=== PATIENT | female | born 1960 | race Caucasian/White ===

== ENCOUNTER → 2023-06-07 15:14 | Outpatient (REF) | payer OTHER, SELFPAY | LOC: WDC 15:14 | PROVIDERS: ATTENDING PHYSICIAN Nurse Practitioner Family; FAMILY PHYSICIAN Internal Medicine | DX: Z12.31 Encounter for screening mammogram for malignant neoplasm of breast (principal) | CPT/HCPCS: 77063; 77067 ==

== ENCOUNTER 2023-11-03 05:27 | Observation (INO) | payer OTHER, SELFPAY ==
[2023-11-03] VITALS (13 sets, daily range): BP systolic 114–154; BP diastolic 73–89; PULSE 66–94; BMI 35.3; BMI 36.2
--- NOTE | 2023-11-03 01:38 | ED.GENMED ---
History of Present Illness
<Mayra Robbins PA-C - Last Filed: 11/05/23 18:07>
General
Chief Complaint: Dizziness
Source: patient
Time Seen by Provider: 11/03/23 01:25
History of Present Illness
History of Present Illness:
63yoF with a history of hypertension, hyperlipidemia, and hypothyroidism presenting with her for evaluation of dizziness. Patient was sitting on her couch watching the [place] around 9 PM. She stood up from the couch and had an abrupt
onset of dizziness. She describes feeling like the room is spinning. Symptoms are worse with movement and if she opens her eyes. She also reports nausea and has had about 12 episodes of vomiting. Patient was unable to ambulate due to her
symptoms. She took a dose of meclizine but vomited shortly afterwards. She has a history of vertigo although her episodes are typically more mild in severity. She has participated in vestibular therapy in the past. She denies any head trauma. No
ear pain, tenderness, hearing loss, headache.
Past History
<Mayra Robbins PA-C - Last Filed: 11/05/23 18:07>
Past History
ED Past Medical History: HTN and Hypothyroidism
Social History
Tobacco: Non-smoker
Alcohol: Occasional
Drug: None
Phy Exam
<Mayra Robbins PA-C - Last Filed: 11/05/23 18:07>
Physical Exam
Physical Exam:
Sitting in dark room with her eyes closed
General Physical Exam
General age: appears stated age
General Skin: warm and dry
General Habitus: normal
General Mental: alert
Eye Exam
Eye Exam: PERRL and other (Horizontal nystagmus bilaterally)
Cardiovascular Exam
Cardiovascular Exam: regular rate/rhythm
Pulmonary Exam
Pulmonary Exam: no respiratory distress
Neurological Exam
Neurological Exam: other (Normal finger to nose and heel to bonilla bilaterally. Normal test of skew. )
Carol Coma Scale
Eye Opening: Spontaneous
Verbal Response: Oriented
Motor Response: Obeys Commands
GCS Total Score: 15
Skin Exam
Skin Exam: normal color and warm/dry
<Stephan Cruz DO - Last Filed: 11/03/23 04:56>
Carol Coma Scale
GCS Total Score: 15
Course
<Mayra Robbins PA-C - Last Filed: 11/05/23 18:07>
Orders/Labs/Results
Orders:
Orders
11/03/23 01:37
Electrocardiogram (*1) Urgent
Reason for Study: Vertigo / Dizzy
CT Head W/o Iv Contrast Urgent
Comment:
Reason For Exam: Dizziness
EKG- Treatment ONCE
0.9% Sodium Chloride 1000 ml [Nss] 1,000 ml IV BOLUS
Meclizine [Antivert] 25 mg PO NOW STA
Ondansetron Injectable [Zofran] 4 mg IV NOW STA
11/03/23 01:50
Complete Blood Count/With Diff Urgent
Comprehensive Metabolic Panel Urgent
TSH Reflex To Free T4 Routine
11/03/23 03:07
diazePAM [Valium Injection] 2 mg IV NOW STA
11/03/23 05:19
Ondansetron Injectable [Zofran] 4 mg IV NOW STA
11/03/23 05:20
Admit/Transfer Patient As Directed
Co-Sign Provider:
Level of Care: Observation services
Assign to:: Telemetry
Physician / Group: Herbie
Diagnosis: Vertigo
Reason for Telemetry: Arrhythmia
Date to Stop Telemetry: 11/06/23
Time to Stop Telemetry: 11:00
Code Status As Directed
Resuscitation Status: Full Code
PRN Pain Medication Management As Directed
May give lesser potent ordered pain med per pt: Yes
preference::
Protocol:: Medication orders for pain may be administered in a
manner that supports deferring to patient preference
when the pt is:
- Requesting an ordered lesser potent pain medication.
Least to most potent pain medications are defined
as: acetaminophen < NSAID < tramadol < opioids
(morphine, oxycodone, hydromorphone).
- Requesting a lesser dose of the same medication IF
ORDERED.
- Requesting a less intrusive route of administration
if both routes are prescribed by the provider (PO <
IV).
11/03/23 Breakfast
Regular
At Your Request: Full Participation
Flush (0.9% Sodium Chloride) [Flush (Nss)] See Dose Instructions IV PER PROTOCOL
11/03/23 08:23
0.9% Sodium Chloride 1000 ml [Nss] 1,000 ml IV 100 mls/hr
Acetaminophen [Tylenol] 650 mg PO Q4HPRN PRN
Diazepam [Valium] 5 mg PO TIDPRN PRN
Levothyroxine [Synthroid] 125 mcg PO DAILY @ 0600
Meclizine [Antivert] 25 mg PO Q8HPRN PRN
Ondansetron Injectable [Zofran] 4 mg IV Q6HPRN PRN
11/03/23 08:23
Activity As Directed
Activity Level: Ambulate
With Assistance
EKG with chest pain [ECG as needed] As Directed
ECG as needed for:: Chest Pain
I/O [Intake/ Output] As Directed
Frequency: Per unit guidelines
Neurological Checks As Directed
Frequency: q4h
Orthostatic Vital Signs As Directed
Orthostatic VS Frequency: BID
Pneumatic Compression Sleeves As Directed
Type: Knee high
Vital Signs As Directed
Frequency: Per unit guidelines
Oxygen Therapy [O2 Therapy] [RESP] Routine
Titrate/Wean O2 to maintain O2 sat greater than (%): 94
PT Consult [Pt Eval And Treat] Routine
Treatment: Vestibular Therapy
Activity Level: Ambulate
With Assistance
DX Deep Vein Thrombosis Video Routine
11/04/23 06:02
Basic Metabolic Panel IN AM
Complete Blood Count/No Diff IN AM
11/06/23 11:00
DC Protocol for Telemetry ONCE
Abnormal Lab Results
11/03/23
01:50
RBC 4.03 L 10^6/uL
(4.20-5.40)
MCH 33.7 H pg
(27.0-31.0)
MPV 10.6 H fL
(7.4-10.4)
Absolute Neuts (auto) 8.3 H 10^3/uL
(1.4-6.5)
Absolute Lymphs (auto) 0.9 L 10^3/uL
(1.2-3.4)
Neutrophils % 86.0 H %
(42.2-75.2)
Lymphocytes % 9.0 L %
(20.5-51.1)
Chloride 108 H mmol/L
(98-107)
BUN 25 H mg/dl
(7-17)
Glucose 149 H mg/dl
(70-99)
Alkaline Phosphatase 153 H U/L
(38-126)
TSH (Reflex) 0.46 L uIU/ml
(0.47-4.68)
11/03/23 01:50
11/03/23 01:50
Vital Signs
Initial and Last Documented VS:
Initial Vital Signs
Pulse Resp BP Pulse Ox
77 28 132/84 100
11/03/23 00:41 11/03/23 00:41 11/03/23 00:41 11/03/23 00:41
Last Documented Vital Signs
Temp Pulse Resp BP Pulse Ox
97.6 F 77 16 152/94 98
11/04/23 11:27 11/04/23 11:27 11/04/23 11:27 11/04/23 11:27 11/04/23 11:27
<Stephan Cruz, - Last Filed: 11/03/23 04:56>
Orders/Labs/Results
Orders:
Orders
11/03/23 01:37
Electrocardiogram (*1) Urgent
Reason for Study: Vertigo / Dizzy
CT Head W/o Iv Contrast Urgent
Comment:
Reason For Exam: Dizziness
EKG- Treatment ONCE
0.9% Sodium Chloride 1000 ml [Nss] 1,000 ml IV BOLUS
Meclizine [Antivert] 25 mg PO NOW STA
Ondansetron Injectable [Zofran] 4 mg IV NOW STA
11/03/23 01:50
Complete Blood Count/With Diff Urgent
Comprehensive Metabolic Panel Urgent
TSH Reflex To Free T4 Routine
11/03/23 03:07
diazePAM [Valium Injection] 2 mg IV NOW STA
11/03/23 05:19
Ondansetron Injectable [Zofran] 4 mg IV NOW STA
11/03/23 05:20
Admit/Transfer Patient As Directed
Co-Sign Provider:
Level of Care: Observation services
Assign to:: Telemetry
Physician / Group: Herbie
Diagnosis: Vertigo
Reason for Telemetry: Arrhythmia
Date to Stop Telemetry: 11/06/23
Time to Stop Telemetry: 11:00
Code Status As Directed
Resuscitation Status: Full Code
PRN Pain Medication Management As Directed
May give lesser potent ordered pain med per pt: Yes
preference::
Protocol:: Medication orders for pain may be administered in a
manner that supports deferring to patient preference
when the pt is:
- Requesting an ordered lesser potent pain medication.
Least to most potent pain medications are defined
as: acetaminophen < NSAID < tramadol < opioids
(morphine, oxycodone, hydromorphone).
- Requesting a lesser dose of the same medication IF
ORDERED.
- Requesting a less intrusive route of administration
if both routes are prescribed by the provider (PO <
IV).
11/03/23 Breakfast
Regular
At Your Request: Full Participation
Flush (0.9% Sodium Chloride) [Flush (Nss)] See Dose Instructions IV PER PROTOCOL
11/03/23 08:23
0.9% Sodium Chloride 1000 ml [Nss] 1,000 ml IV 100 mls/hr
Acetaminophen [Tylenol] 650 mg PO Q4HPRN PRN
Diazepam [Valium] 5 mg PO TIDPRN PRN
Levothyroxine [Synthroid] 125 mcg PO DAILY @ 0600
Meclizine [Antivert] 25 mg PO Q8HPRN PRN
Ondansetron Injectable [Zofran] 4 mg IV Q6HPRN PRN
11/03/23 08:23
Activity As Directed
Activity Level: Ambulate
With Assistance
EKG with chest pain [ECG as needed] As Directed
ECG as needed for:: Chest Pain
I/O [Intake/ Output] As Directed
Frequency: Per unit guidelines
Neurological Checks As Directed
Frequency: q4h
Orthostatic Vital Signs As Directed
Orthostatic VS Frequency: BID
Pneumatic Compression Sleeves As Directed
Type: Knee high
Vital Signs As Directed
Frequency: Per unit guidelines
Oxygen Therapy [O2 Therapy] [RESP] Routine
Titrate/Wean O2 to maintain O2 sat greater than (%): 94
PT Consult [Pt Eval And Treat] Routine
Treatment: Vestibular Therapy
Activity Level: Ambulate
With Assistance
DX Deep Vein Thrombosis Video Routine
11/04/23 06:02
Basic Metabolic Panel IN AM
Complete Blood Count/No Diff IN AM
11/06/23 11:00
DC Protocol for Telemetry ONCE
Abnormal Lab Results
11/03/23
01:50
RBC 4.03 L 10^6/uL
(4.20-5.40)
MCH 33.7 H pg
(27.0-31.0)
MPV 10.6 H fL
(7.4-10.4)
Absolute Neuts (auto) 8.3 H 10^3/uL
(1.4-6.5)
Absolute Lymphs (auto) 0.9 L 10^3/uL
(1.2-3.4)
Neutrophils % 86.0 H %
(42.2-75.2)
Lymphocytes % 9.0 L %
(20.5-51.1)
Chloride 108 H mmol/L
(98-107)
BUN 25 H mg/dl
(7-17)
Glucose 149 H mg/dl
(70-99)
Alkaline Phosphatase 153 H U/L
(38-126)
TSH (Reflex) 0.46 L uIU/ml
(0.47-4.68)
11/03/23 01:50
11/03/23 01:50
Vital Signs
Initial and Last Documented VS:
Initial Vital Signs
Pulse Resp BP Pulse Ox
77 28 132/84 100
11/03/23 00:41 11/03/23 00:41 11/03/23 00:41 11/03/23 00:41
Last Documented Vital Signs
Temp Pulse Resp BP Pulse Ox
97.6 F 77 16 152/94 98
11/04/23 11:27 11/04/23 11:27 11/04/23 11:27 11/04/23 11:27 11/04/23 11:27
<Mayra Robbins PA-C - Last Filed: 11/05/23 18:07>
MDM/Problems Addressed
Differential Diagnosis Includes:
63yoF here with dizziness. Feels like the room is spinning. Worse with head movement. Associated with n/v. Hx of vertigo. She is sitting in a dark room with her eyes closed on exam. +Horizontal nystagmus. No ataxia on finger to nose or heel to bonilla.
Vital stable. Differential diagnosis includes but is not limited to: BPPV, labyrinthitis, vestibular neuronitis, M�ni�re's, CVA
Initial ED plan: Check CBC, CMP, EKG, and CT head. IV Zofran, meclizine, and fluid bolus for symptoms.
<Mayra Robbins PA-C - Last Filed: 11/05/23 18:07>
*EKG
Interpreted by ED Provider?: Yes
EKG Intrepretation Date: 11/03/23
Heart Rate: 67
Rate: normal
Rhythm: sinus
[place]: normal axis
Interval: normal interval
QRS Pattern: normal QRS
Ischemia: no ischemia
<Stephan Cruz DO - Last Filed: 11/03/23 04:56>
*Radiology
Radiology exam reviewed: preliminary read by ED provider (No obvious intracranial hemorrhage)
*Pulse Oximetry
Patient hypoxic: no
*[employer] Interpretation
Rate: normal
Interpretation: normal
Rhythm: sinus
*Critical Care Note
Total Time (30-74mins, 75-104mins- exclusive of procedures): 30 minutes
Data Reviewed
Source: patient
Further Testing Considered But Not Given:
Consider MRI but suspect peripheral vertigo. May need reassessing and/or neuro consult
<Stephan Cruz DO - Last Filed: 11/03/23 04:56>
Patient Management
Discussion with other providers: Hospitalist
<Mayra Robbins PA-C - Last Filed: 11/05/23 18:07>
Update Note
Update Note:
Labs unremarkable. EKG shows NSR without ischemic changes. Patient with minimal improvement in symptoms after meclizine. IV Valium ordered. Patient signed out to Dr. Cruz pending CT scan and reassessment.
ED Attending Note
<Mayra Robbins PA-C - Last Filed: 11/05/23 18:07>
-
Portions of this chart may have been created with voice recognition software.� Occasional wrong word or��sound alike� substitutions may have occurred due to the inherent limitations of voice recognition software.
<Stephan Cruz DO - Last Filed: 11/03/23 04:56>
ED Attending Note
Patient seen and examined by attending physician: Yes
I performed the substantive portion of visit, reviewed & personally made and approve the management plan that is documented in note by myself or BELA.: Yes
ED Attending Note:
63-year-old female presents with room spinning dizziness and vomiting. Patient has a history of vertigo. Symptoms began around 9 PM after standing up. She has seen a vestibular specialist in the past. Patient states she only had it this been one
of the time 12 years ago. Patient denies motor weakness. She denies tinnitus or hearing deficit. Symptoms clearly worse when she moves her head but also remains dizzy with opening her eyes. No gross motor deficits and no obvious cerebellar
deficits. Assessment and plan: Suspect peripheral vertigo. Minimal relief initially with medication but now dizzy again unable to move in bed. Admit
Discharge Plan
Departure
Patient Disposition: Admit
Date of Disposition: 11/03/23
Time of Disposition: 04:52
Admit to: Med/Surg
Presentation/result/management discussed w/ accepting MD/DO: Hospitalist
Discharge Problem:
Vertigo
Interventions
Interventions:
*Risk Screen - Suicide Last Done: 11/03/23 00:42
*General Assessment Last Done: 11/03/23 00:42
*Neglect/Abuse Screening Last Done: 11/03/23 00:42
ED- Fall Risk Assessment Last Done: 11/03/23 05:35
*ED COVID-19 Vaccine History Last Done: 11/03/23 00:43
*Nursing Disposition Last Done: 11/03/23 07:32
ED- Neurological Assessment Last Done: 11/03/23 02:00
ED- Cardiac Assessment Last Done: 11/03/23 05:35
Discharge Date and Time
Discharge Date/Time: 11/03/23 08:20
[2023-11-03] MEDS: NSS 1000 IV ×3 (01:53→19:39)
[2023-11-03] MEDS: ZOFRAN 4 MG IV ×3 (01:54→11:25)
[2023-11-03] MEDS: ANTIVERT 25 MG PO (01:58)
[2023-11-03 02:12] LABS: ALT (SGPT) 25 U/L (0-35); AST (SGOT) 28 U/L (14-36); Albumin 4.5 g/dl (3.5-5.0); Alkaline Phosphatase 153 U/L (38-126); Blood Urea Nitrogen 25 mg/dl (7-17); Calcium 10.1 mg/dl (8.4-10.2); Carbon Dioxide 23 mmol/L (22-30); Chloride 108 mmol/L (98-107); Estimated Creatinine Clearance 101 ml/min; Glucose 149 mg/dl (70-99); Potassium 4.2 mmol/L (3.5-5.1); Sodium 139 mmol/L (135-145); Total Bilirubin 0.7 mg/dl (0.2-1.3); Total Protein 6.7 g/dl (6.3-8.2); eGFR > 60.00
[2023-11-03 02:15] LABS: % Basophils 0.5 % (0-2); % Eosinophils 0.8 % (0-6); % Immature Granulocytes 0.4 % (0-0.5); % Monocytes 3.3 % (1.7-9.3); Absolute Basophils 0.1 10^3/uL (0-0.2); Absolute Eosinophils 0.1 10^3/uL (0-0.7); Absolute Lymphocytes 0.9 10^3/uL (1.2-3.4); Absolute Monocytes 0.3 10^3/uL (0.1-0.6); Absolute Neutrophils 8.3 10^3/uL (1.4-6.5); Hematocrit 38.6 % (37.0-47.0); Hemoglobin 13.6 g/dL (12.0-16.0); Mean Corp Hgb Conc. 35.2 g/dL (33.0-37.0); Mean Corpuscular Hgb 33.7 pg (27.0-31.0); Mean Corpuscular Volume 95.8 fL (81.0-99.0); Mean Platelet Volume 10.6 fL (7.4-10.4); Nucleated Red Blood Cells % 0 %; Platelet Count 247 10^3/uL (130-400); Red Blood Cell Count 4.03 10^6/uL (4.20-5.40); Red Cell Dist. Width 12.7 % (11.5-14.5); White Blood Cell Count 9.7 10^3/uL (4.8-10.8)
[2023-11-03] MEDS: VALIUM INJECTION 2 MG IV (03:18)
--- NOTE | 2023-11-03 05:23 | HPS.HSE ---
Family Physician
-
Family Physician: Yisel Shah
Chief Complaint
-
Dizzines. N/V
History of Present Illness
Patient is a 63y F with PMH significant for vertigo, hypertension and hypothyroidism who presents to ED complaining of dizziness and N/V that started suddenly this evening. Patient states that she has had intermittent symptoms of dizziness over
the past 30 years or so. Most of her episodes are fairly mild / self-limited. Her initial episode was quite severe and her current symptoms seem more similar to that. Patient states that she was feeling well until about 9 PM this evening. She
stood from the couch and had sudden onset fo room spinning sensation and severe nausea. She states that she had emesis at home every few minutes for about 3 hours. When her symptoms did not improve she presented to the ED for further evaluation.
In the ED, Zofran provided some temporary relief. Minimal improvement noted with meclizine or Valium. With persistent symptoms despite treatment patient is referred for hospitalization.
Patient denies any recent injury, illness, fall, etc.
Medical History
Past Medical History
Past Medical History: Reports Other
Additional Past Medical History:
Hypothyroidism
Hypertension
Dyslipidemia
Vestibular Migraine
Past Surgical History: Reports Other
Additional Past Surgical History:
D&C
Social History
Tobacco: Non-smoker
Alcohol: Occasional
Drug: None
Personal:
Living: With Family
Family History
Family History: Other (Father: Paget's Brother: PE (COVID) Mother: DM, VTE, Vertigo)
Allergies / Home Medications
Allergies reflects when Allergies were last updated in [facility].
Home Medications with original date entered in [facility]
Allergy/Medication List:
Allergies
Allergy/AdvReac Type Severity Reaction Status Date / Time
No Known Allergies Allergy Verified 11/03/23 00:40
Home Medications
multivitamin with folic acid 400 mcg tablet (Tab-A-Kinga) 1 tab PO DAILY Supplement 12/11/19
atorvastatin 40 mg tablet 40 mg PO QPM #30 tabs 12/13/19
levothyroxine 125 mcg tablet 125 mcg PO DAILY 11/03/23
lisinopril 5 mg tablet 5 mg PO DAILY 11/03/23
Review of Systems
-
History Source: Patient
A 12 point ROS was completed and negative except as noted: Yes
Constitutional: Reports Fatigue; Denies Fever or Chills
EENT: Denies Sore Throat
Respiratory: Denies Cough or Trouble Breathing
Cardiac: Denies Chest Pain or Palpitations
Abdomen/GI: Reports Nausea and Vomiting; Denies Abdominal Pain or Diarrhea
: Denies Dysuria or Frequency
Neurological: Reports Dizzy; Denies Headache, Weakness or Numbness
Psych: Denies Depression or Anxiety
Physical Exam
Vital Signs
Vital Signs
Temp Pulse Resp BP Pulse Ox
97.8 F 67 16 129/89 94
11/03/23 04:40 11/03/23 05:00 11/03/23 02:44 11/03/23 05:00 11/03/23 05:00
Physical Exam
General: Other (63y F in mild distress due to dizziness.)
HEENT: Other (Eyes closed throughout interview / exam. Neck supple. MMM. Pos horizontal nystagmus - mostly appreciated on the R.)
Respiratory: Clear; No Wheezes, Rales or Rhonchi
Cardiac: S1/S2 and Regular Rhythm; No Murmur
GI: Soft, Non Tender, Non Distended and Normal Bowel Sounds
Musculoskeletal: No Clubbing, No Cyanosis and No Edema
Neuro: AO x 3
Laboratory Results
-
11/03/23 01:50
11/03/23 01:50
Laboratory Results
Total Bilirubin 0.7 mg/dl (0.2-1.3) 11/03/23 01:50
AST 28 U/L (14-36) 11/03/23 01:50
ALT 25 U/L (0-35) 11/03/23 01:50
Alkaline Phosphatase 153 U/L (38-126) H 11/03/23 01:50
Impression/Plan
-
A/P: Patient is a 63y F with PMH significant for vertigo / vestibular migraines who presents to ED complaining of dizziness with N/V starting this evening.
Vertigo
BPPV versus Vestibular Migraine
- Observe for symptom control / further evaluation.
- Continue Zofran, Valium, etc PRN.
- PT / Vestibular therapy eval in the AM.
- CT done in the ED was unremarkable.
- IVF support.
- Follow for clinical improvement.
Hypothyroidism
- Stable. Continue current T4 replacement.
Benign Hypertension
- Stable. Hold lisinopril acutely.
DVT Prophylaxis: SCDs
Code Status: Full
--- NOTE | 2023-11-03 07:38 | W.PN.HOSP.TC ---
Today's Communication/Plan
-
cont supportive care
fall precautions
PT/OT
Assessment / Plan
Assessment / Plan
Physical Exam
General: no acute distress appears comfortable at this time
HEENT: Neck supple. MMM. Pos horizontal nystagmus
Respiratory: Clear; No Wheezes, Rales or Rhonchi
Cardiac: S1/S2 and Regular Rhythm; No Murmur
GI: Soft, Non Tender, Non Distended and Normal Bowel Sounds
Musculoskeletal: No Clubbing, No Cyanosis and No Edema
Neuro: AO x 3
A/P: Patient is a 63y F with PMH significant for vertigo / vestibular migraines who presents to ED complaining of dizziness with N/V starting this evening.
Vertigo
Vesibular Neuritis/Labrynthitis (more likely) vs BPPV versus Vestibular Migraine
- Observe for symptom control / further evaluation.
- Continue Zofran, Valium Meclizine PRN.
- PT eval appreciated signs symptoms suggestive vestibular neuritis
- CT head appreciated no acute abn's
- IVF support.
- Follow for clinical improvement.
Hypothyroidism
- Stable. Continue current T4 replacement.
Benign Hypertension
- Stable. Hold lisinopril acutely, BP well controlled without
DVT Prophylaxis: SCDs
Code Status: Full
I spent a total of 50 minutes with the patient or on the floor. More than 50% of this time involved counseling and coordination of care.
Anticipated Discharge: 24 - 48 hours
Subjective/Interval History
-
Date of Service: November 03, 2023
Reports improvement in symptoms dizziness but not resolved.
Objective Data
-
Labs:
Laboratory Results
11/03/23
01:50
WBC 9.7
Hgb 13.6
Hct 38.6
Plt Count 247
Sodium 139
Potassium 4.2
Chloride 108 H
Carbon Dioxide 23
BUN 25 H
Creatinine 0.7
Glucose 149 H
Calcium 10.1
Total Bilirubin 0.7
AST 28
ALT 25
Alkaline Phosphatase 153 H
Vital Signs:
Vital Signs
Temp Pulse Resp BP Pulse Ox
97.8 F 81 17 124/80 95
11/03/23 04:40 11/03/23 07:00 11/03/23 07:00 11/03/23 07:00 11/03/23 06:00
[2023-11-03] MEDS: SYNTHROID 125 MCG PO (09:55)
[2023-11-03 15:15] LABS: TSH Reflex To Free T4 0.46 uIU/ml (0.47-4.68)
[2023-11-03 15:44] LABS: Free T4 1.52 ng/dl (0.78-2.19)
[2023-11-03] MEDS: TYLENOL 650 MG PO (19:39)
[2023-11-04 03:22] VITALS: BP 127/78
[2023-11-04] MEDS: NSS 1000 IV (04:21)
[2023-11-04] MEDS: SYNTHROID 125 MCG PO (04:23)
[2023-11-04 06:44] LABS: Hematocrit 34.9 % (37.0-47.0); Hemoglobin 11.8 g/dL (12.0-16.0); Mean Corp Hgb Conc. 33.8 g/dL (33.0-37.0); Mean Corpuscular Hgb 33.6 pg (27.0-31.0); Mean Corpuscular Volume 99.4 fL (81.0-99.0); Mean Platelet Volume 10.1 fL (7.4-10.4); Platelet Count 195 10^3/uL (130-400); Red Blood Cell Count 3.51 10^6/uL (4.20-5.40); Red Cell Dist. Width 13.3 % (11.5-14.5); White Blood Cell Count 5.4 10^3/uL (4.8-10.8)
[2023-11-04 07:03] LABS: Blood Urea Nitrogen 16 mg/dl (7-17); Calcium 8.9 mg/dl (8.4-10.2); Carbon Dioxide 26 mmol/L (22-30); Chloride 111 mmol/L (98-107); Estimated Creatinine Clearance 102 ml/min; Glucose 97 mg/dl (70-99); Phosphorus 3.1 mg/dl (2.5-4.5); Potassium 4.1 mmol/L (3.5-5.1); Sodium 141 mmol/L (135-145); eGFR > 60.00
[2023-11-04 07:15] VITALS: BP 131/92
--- NOTE | 2023-11-04 07:18 | W.PN.HOSP.TC ---
Addendum entered and electronically signed by Trinity Zaidi MD 11/04/23 12:52:
BP increasing
Ok to resume home lisinopril on discharge.
Original Note:
Today's Communication/Plan
-
discharge
Assessment / Plan
Assessment / Plan
Physical Exam
General: no acute distress appears comfortable at this time
HEENT: Neck supple. MMM. Pos horizontal nystagmus resolving/resolved
Respiratory: Clear; No Wheezes, Rales or Rhonchi
Cardiac: S1/S2 and Regular Rhythm; No Murmur
GI: Soft, Non Tender, Non Distended and Normal Bowel Sounds
Musculoskeletal: No Clubbing, No Cyanosis and No Edema
Neuro: AO x 3
A/P: Patient is a 63y F with PMH significant for vertigo / vestibular migraines who presents to ED complaining of dizziness with N/V starting this evening.
Vertigo
Vesibular Neuritis/Labrynthitis (more likely) vs BPPV versus Vestibular Migraine
- Continue Zofran, Valium Meclizine PRN.
- PT eval appreciated signs symptoms suggestive vestibular neuritis
- CT head appreciated no acute abn's
- IVF support completed
- Follow for clinical improvement.
Hypothyroidism
- Stable. Continue current T4 replacement.
Benign Hypertension
- Stable. Hold lisinopril acutely, BP well controlled without
DVT Prophylaxis: SCDs
Code Status: Full
Medically stable for discharge home with outpatient Vestibular therapy and follow up recommendations.
Discussed with patient and patient's Prakash.
Total Time Preparing Discharge __40 minutes including examination of the patient, summary of the hospital stay, instructions for continuing care to all relevant caregivers; and preparation of discharge records, prescriptions, and referral
forms if necessary.
Anticipated Discharge: Today
Subjective/Interval History
-
Date of Service: November 04, 2023
Seen and examined at bedside in no acute distress reports overall improvement/resolution of symptoms. Reports feeling well. Eager to go home. Denies new acute issues at this time.
Objective Data
-
Labs:
Laboratory Results
11/04/23
06:02
WBC 5.4
Hgb 11.8 L
Hct 34.9 L
Plt Count 195 D
Sodium 141
Potassium 4.1
Chloride 111 H
Carbon Dioxide 26
BUN 16
Creatinine 0.7
Glucose 97
Calcium 8.9
Vital Signs:
Vital Signs
Temp Pulse Resp BP Pulse Ox
97.8 F 77 18 127/78 95
11/04/23 03:22 11/04/23 03:22 11/04/23 03:22 11/04/23 03:22 11/04/23 03:22
I&O
11/03/23 11/04/23 11/05/23
06:59 06:59 06:59
Intake Total 1200 / 1200
Balance 1200 / 1200
[2023-11-04 07:20] VITALS: BP 131/92
--- NOTE | 2023-11-04 10:44 | CM ---
Patient seen at bedside. Patient states that she lives with her in a 2 story home. Patient PCP is Dr. Shah and she uses the [facility] on [address]. Patient stated that she plans to go home later today. CM reviewed with patient OBS form and
she requested time to read and review. CM will return to complete. CM will continue to follow for discharge planning needs.
Plan; home with no needs anticipated
[2023-11-04 11:27] VITALS: BP 152/94
[2023-11-04 11:57] VITALS: BP 119/86; BP 140/86; BP 152/94; PULSE 76; PULSE 77; PULSE 83
--- NOTE | 2023-11-04 12:56 | W.DCSUMMARY ---
Discharge Summary
Discharge Data
Date of Admission: 11/03/23
Date of Discharge: 11/04/23
-
Pending Results: No
Discharge Plan
-
Patient Disposition: Home (Routine Discharge)
Discharge Diagnosis/Procedures: Vestibular Neuritis/Labyrinthitis
Condition: Good
Diet: Regular
Activity: As tolerated
Driving Restrictions: As prior to admission
Bathing Restrictions: None
Activity Restrictions/Additional Instructions:
Please follow up with primary care provider in 1 week of discharge and ENT in 2 weeks of discharge.
A script has been provided for outpatient Vestibular Therapy.
Meclizine as needed has been prescribed for dizziness/vertigo.
Please take medications as prescribed/recommended and follow up with primary care provider and/or other healthcare provider involved in your care for refills and/or further adjustment to your medication regimen as necessary.
Instructions: Labyrinthitis
Referrals:
Yisel Shah MD [Family Provider] - in one week
Diego Arango MD [Active] - in two weeks
Prescriptions:
New
meclizine 25 mg Tablet
25 mg PO Q8HPRN PRN (Reason: Dizziness) 7 Days Qty: 21 0RF
Continued
multivitamin with folic acid [Tab-A-Kinga] 1 TABLET tablet
1 tab PO DAILY
atorvastatin 40 MG tablet
40 mg PO QPM Qty: 30 0RF
levothyroxine 125 mcg Tablet
125 mcg PO DAILY@06
lisinopril 5 mg Tablet
5 mg PO DAILY
Discharge Orders:
Discharge Patient (As Directed); Ordered 11/04/23
Ordered By: Trinity Zaidi
Discharge Date and Time
Print Language: FAROESE
[2023-11-04 13:30] VITALS: BP 136/89; PULSE 76; O2SAT 97
== END 2023-11-04 14:50 | disposition home or self-care (01) ==
LOC: 4 EAST ACU 05:27
PROVIDERS: Physician Assistant; ADMITTING PHYSICIAN Hospitalist; ATTENDING PHYSICIAN Internal Medicine; EMERGENCY PHYSICIAN Emergency Medicine; FAMILY PHYSICIAN Internal Medicine
DX: H83.09 Labyrinthitis, unspecified ear (principal); H81.20 Vestibular neuronitis, unspecified ear; I10 Essential (primary) hypertension; E03.9 Hypothyroidism, unspecified; E78.5 Hyperlipidemia, unspecified; R11.2 Nausea with vomiting, unspecified; H55.09 Other forms of nystagmus; Z83.3 Family history of diabetes mellitus; Z79.890 Hormone replacement therapy
CPT/HCPCS: 70450; 80048; 80053; 83735; 84100; 84439; 84443; 85025; 85027; 93005; 96361; 96374; 96375; 97116; 97163; 97166; 99291; G0378

== ENCOUNTER → 2024-08-04 10:43 | Outpatient (REF) | payer OTHER, SELFPAY | LOC: WDC 10:43 | PROVIDERS: ATTENDING PHYSICIAN Emergency Medicine | DX: Z13.820 Encounter for screening for osteoporosis (principal); N20.0 Calculus of kidney; N39.0 Urinary tract infection, site not specified; Z12.31 Encounter for screening mammogram for malignant neoplasm of breast | CPT/HCPCS: 74018; 76770; 77063; 77067; 77080 ==